=== PATIENT | male | born 1955 | race Caucasian/White ===

== ENCOUNTER 2018-02-26 04:40 | Emergency (ER) | payer OTHER ==
[2018-02-26] MEDS ORDERED: Lidocaine 1% 20 ML MDV INJECT ONE (05:12)
[2018-02-26] MEDS ORDERED: Bacitracin Oint 28.35 GM Tube TOP STA (05:32)
[2018-02-26] MEDS ORDERED: Bacitracin Oint 1 GM U/D Packet TOP ONE (05:36)
[2018-02-26] MEDS ORDERED: Bacitracin Oint 1 GM U/D Packet ONE (05:37)
--- NOTE | 2018-02-26 05:49 | EDM.PDOC ---
<Alycia Dia - Last Filed: 02/26/18 07:05> ED HPI GENERAL MEDICAL PROBLEM - General Chief Complaint: Upper Extremity Injury/Pain Stated Complaint: FELL DOWN THE STAIRS Time Seen by Provider: 02/26/18 05:43 Source of Information: Reports: Patient, EMS, Family History Limitations: Reports: No Limitations - History of Present Illness INITIAL COMMENTS - FREE TEXT/NARRATIVE: pt had been drinking tonight and he went down the stairs and lost his balance . He hit the rt side of his head and was not knocked out. He does have alot of swelling over the area. He is not on blood thinners. He also hit the rt shoulder and is having pain in the shoulder. Onset: Today, Sudden Duration: Hour(s): Location: Reports: Head, Upper Extremity, Right Associated Symptoms: Reports: No Other Symptoms, Other (pt is intoxicated. ) Right Shoulder Pain Score (Numeric/FACES): 9 head lac Pain Score (Numeric/FACES): 3 - Related Data Allergies Allergy/AdvReac Type Severity Reaction Status Date / Time No Known Allergies Allergy Verified 02/26/18 04:48 Home Meds: Home Meds Fexofenadine HCl [Ramonita Allergy] 60 mg PO DAILY 02/26/18 [History] Gluc 2KCl/Chondr/Jr Hy/Hy Ac [Glucosamine & Chondroitin Cap] 1 tab PO DAILY [History] Lisinopril/Hydrochlorothiazide [Lisinopril-Hctz 20-25 mg Tab] 1 each PO DAILY [History] Tamsulosin HCl [Flomax] 0.4 mg PO DAILY 02/26/18 [History] Past Medical History Cardiovascular History: Reports: Hypertension Genitourinary History: Reports: Prostate Disorder Musculoskeletal History: Reports: Arthritis, Fracture Social & Family History - Tobacco Use Smoking Status *Q: Never Smoker - Alcohol Use Days Per Week of Alcohol Use: 2 Number of Drinks Per Day: 10 Total Drinks Per Week: 20 - Recreational Drug Use Recreational Drug Use: No Review of Systems - Review of Systems Review Of Systems: See Below Constitutional: Reports: No Symptoms Eyes: Reports: Other (pupils equal and reactive. ) Ears: Reports: No Symptoms Nose: Reports: No Symptoms Mouth/Throat: Reports: No Symptoms Respiratory: Reports: No Symptoms Cardiovascular: Reports: No Symptoms GI/Abdominal: Reports: No Symptoms Genitourinary: Reports: No Symptoms Musculoskeletal: Reports: No Symptoms Skin: Reports: No Symptoms Neurological: Reports: No Symptoms ED EXAM, GENERAL - Physical Exam Exam: See Below Free Text/Narrative:: pt arrived able to give a good history. He had been drinking tonight and he fell down about 8 steps. He hit the rt side of his head . he was not knocked out. He has a large hematoma. He also hit his rt shoulder. Exam Limited By: No Limitations General Appearance: Alert, Mild Distress, Other (pt has been drinking. Pupils are equal and reactive. ) Ears: Normal TMs Nose: Normal Inspection Throat/Mouth: Normal Inspection Head: Atraumatic Neck: Normal Inspection Respiratory/Chest: No Respiratory Distress Cardiovascular: Regular Rate, Rhythm GI/Abdominal: Soft, Non-Tender (Male) Exam: Deferred Rectal (Males) Exam: Deferred Back Exam: Normal Inspection Extremities: Other ( pt has pain in the rt shoulder. ) Neurological: Alert, Oriented, Other (pt is intoxicated. ) Course - Vital Signs Last Recorded V/S: Last Vital Signs Temp 97.2 F 02/26/18 04:44 Pulse 86 02/26/18 04:55 Resp 18 02/26/18 04:55 BP 145/101 H 02/26/18 04:55 Pulse Ox 96 02/26/18 04:55 - Orders/Labs/Meds Orders: Active Orders 24 hr Category Date Time Status Clavicle Rt [CR] Stat Exams 02/26/18 05:11 Taken Head wo Cont [CT] Stat Exams 02/26/18 05:43 Taken Shoulder Comp Rt [CR] Stat Exams 02/26/18 04:45 Taken Shoulder wo Cont Rt [CT] Stat Exams 02/26/18 06:49 Taken Labs: Laboratory Tests 02/26/18 02/26/18 02/26/18 Range/Units 04:55 04:55 04:55 WBC 4.5 (4.5-11.0) K/uL RBC 5.03 (4.30-5.90) M/uL Hgb 15.6 H (12.0-15.0) g/dL Hct 46.3 (40.0-54.0) % MCV 92 (80-98) fL MCH 31 (27-31) pg MCHC 34 (32-36) % Plt Count 197 (150-400) K/uL Neut % (Auto) 56 (36-66) % Lymph % (Auto) 31 (24-44) % Irwin % (Auto) 10 H (2-6) % Eos % (Auto) 3 (2-4) % Baso % (Auto) 0 (0-1) % Sodium 146 (140-148) mmol/L Potassium 4.0 (3.6-5.2) mmol/L Chloride 109 H (100-108) mmol/L Carbon Dioxide 29 (21-32) mmol/L Anion Gap 12.0 (5.0-14.0) mmol/L BUN 13 (7-18) mg/dL Creatinine 1.0 (0.8-1.3) mg/dL Est Cr Clr Drug Dosing 91.33 mL/min Estimated GFR (MDRD) > 60 (>60) Glucose 126 H (74-106) mg/dL Calcium 8.7 (8.5-10.1) mg/dL Total Bilirubin 0.2 (0.2-1.0) mg/dL AST 26 (15-37) U/L ALT 36 (12-78) U/L Alkaline Phosphatase 76 (46-116) U/L Total Protein 7.2 (6.4-8.2) g/dL Albumin 3.6 (3.4-5.0) g/dL Globulin 3.6 H (2.3-3.5) g/dL Albumin/Globulin Ratio 1.0 L (1.2-2.2) Ethyl Alcohol 268 mg/dL Meds: Medications Discontinued Medications Generic Name Dose Route Start Last Admin Trade Name Dyan PRN Reason Stop Dose Admin Bacitracin 1 gm 02/26/18 09:00 Bacitracin Oint TOP TID JENNI Bacitracin 1 gm 02/26/18 05:32 02/26/18 05:46 Bacitracin Oint TOP 02/26/18 05:33 Not Given NOW STA Bacitracin 1 dose 02/26/18 05:36 02/26/18 05:46 Bacitracin Oint 1 Gm TOP 02/26/18 05:37 1 dose ONETIME ONE Administration Bacitracin Confirm 02/26/18 05:37 02/26/18 05:46 Bacitracin Oint 1 Gm Administered 02/26/18 05:38 Not Given Dose 1 dose .ROUTE .STK-MED ONE Ketorolac Tromethamine 60 mg 02/26/18 06:25 02/26/18 06:36 Toradol IM 02/26/18 06:26 60 mg ONETIME ONE Administration Lidocaine HCl 20 ml 02/26/18 05:12 02/26/18 05:32 Xylocaine 1% INJECT 02/26/18 05:13 20 ml ONETIME ONE Administration - Re-Assessments/Exams Free Text/Narrative Re-Assessment/Exam: 02/26/18 05:52 etoh is .268. He has normal labs otherwise. 02/26/18 06:51 pt had a neg cat scan of the head . His shoulder did not show a fracture. He has now developed alot of swelling over the scapula area. Will obtain a cat scan of the rt shoulder with particular interest in the rt scapula. 02/26/18 07:05 Pt had a laceration 7 inches in length. This is ragged in nature. the wound was cleaned well and infiltratesd with lidocaine. It was closed tightly with 3- 0 ethilon. A pressure dressing was applied. S Departure - Departure Disposition: Home, Self-Care 01 Clinical Impression: Head injury - Discharge Information Instructions: Wound Care, Adult Referrals: PCP,None [Primary Care Provider] - Forms: ED Department Discharge Care Plan Goals: suture removal in 8 days. Pt may leave pressure dressin on for 4-5 hours. He can then wash his hair. After that he needs to keep the wound dry. <Hira Mccann - Last Filed: 02/26/18 07:55> Course - Re-Assessments/Exams Free Text/Narrative Re-Assessment/Exam: 02/26/18 07:32 CT scan looked normal and this was relayed to the patient before discharge. Follow Dr. Dia's discharge recommendations. Departure - Departure Time of Disposition: 07:48
[2018-02-26] MEDS ORDERED: Ketorolac 60 MG/2 ML SDV IM ONE (06:25)
[2018-02-26] MEDS ORDERED: Bacitracin Oint 28.35 GM Tube TOP SCH (09:00)
== END 2018-02-26 07:48 | disposition home or self-care (01) ==
LOC: JP.ED 04:40
DX: S01.01XA Laceration without foreign body of scalp, initial encounter (principal); S49.91XA Unspecified injury of right shoulder and upper arm, initial encounter; I10 Essential (primary) hypertension; N42.9 Disorder of prostate, unspecified; W10.9XXA Fall (on) (from) unspecified stairs and steps, initial encounter; Z79.899 Other long term (current) drug therapy
CPT/HCPCS: 12005; 36415; 70450; 73000; 73030; 73200; 80053; 85025; 96372; 99284; G0480; J1885; A9270-GY

== ENCOUNTER 2024-10-20 19:07 | Emergency (ER) | payer MEDICARE, OTHER ==
[2024-10-20 19:36] LABS: BASOPHILS ABSOLUTE AUTO 0.03 K/uL (0.00-0.10); BASOPHILS PERCENT AUTO 0.5 % (0.1-1.3); EOSINOPHILS ABSOLUTE AUTO 0.08 K/uL (0.00-0.40); EOSINOPHILS PERCENT AUTO 1.3 % (0.0-5.4); IMMATURE GRAN ABSOLUTE AUTO 0.01 K/uL (0.00-0.23); IMMATURE GRAN PERCENT AUTO 0.2 % (0.0-0.7); LYMPHOCYTES ABSOLUTE AUTO 1.73 K/uL (0.8-3.3); LYMPHOCYTES PERCENT AUTO 27.7 % (11.4-47.7); MONOCYTES ABSOLUTE AUTO 0.51 K/uL (0.20-0.90); MONOCYTES PERCENT AUTO 8.2 % (3.3-12.6); NEUTROPHILS ABSOLUTE AUTO 3.89 K/uL (1.0-7.6); NEUTROPHILS PERCENT AUTO 62.1 % (40.0-78.1); PLATELET COUNT,PLT 121 K/uL (130-375); RED BLOOD CELL COUNT 4.63 M/uL (4.14-5.76); WHITE BLOOD CELL COUNT,WBC 6.3 K/uL (3.2-11.0)
[2024-10-20] MEDS: Diltiazem 25 MG/5 ML SDV IVPUSH ONE (19:42)
[2024-10-20 19:52] LABS: INR 1.3
[2024-10-20 19:59] LABS: A/G RATIO 1.0 (1.2-2.2); ALANINE AMINOTRANSFERASE,ALT 21 U/L (12-78); ASPARTATE AMNIOTRANSFERASE,AST 31 U/L (15-37); BILIRUBIN TOTAL 1.5 mg/dL (0.2-1.0); BLOOD UREA NITROGEN,BUN 15 mg/dL (7-18); CARBON DIOXIDE,CO2 25 mmol/L (21-32); CHLORIDE,CL 108 mmol/L (100-108); CREATININE 0.9 mg/dL (0.8-1.3); EST CRCL DRUG DOSING (CG) 92.60 mL/min; ESTIMATED GFR 94 mL/min (>60); GLUCOSE RANDOM 116 mg/dL (74-106); POTASSIUM,K 4.1 mmol/L (3.6-5.2); PROTEIN TOTAL,TP 7.3 g/dL (6.4-8.2); SODIUM,NA 140 mmol/L (140-148); TROPONIN I HIGH SENSITIVITY 17.8 pg/mL (<=60.3)
[2024-10-20] MEDS: Iopamidol 755 Mg/ML 100 ML Bottle IV SCH (21:47)
[2024-10-20] MEDS: Furosemide 40 MG/4 ML VIAL IVPUSH ONE (22:36)
[2024-10-20 23:22] LABS: APPEARANCE,URINE CLEAR (CLEAR); GLUCOSE,URINE NEGATIVE (NEGATIVE); OCCULT BLOOD,URINE TRACE-INTACT (NEGATIVE)
[2024-10-20] MEDS: Metoprolol Tartrate 5 MG/5 ML SDV IVPUSH ONE (23:29)
[2024-10-20 23:34] LABS: SQUAMOUS EPITHELIAL CELLS,UR RARE /HPF; UROTHELIAL CELLS,URINE NOT SEEN /HPF
[2024-10-21] MEDS ORDERED: Diltiazem 100 MG in Sodium Chloride 0.9% 100 ML IV SCH (00:30)
[2024-10-21] MEDS: LORazepam 2 MG/ML SDV IVPUSH ONE (05:02)
[2024-10-21] MEDS: Metoprolol Tartrate 5 MG/5 ML SDV IVPUSH ONE (07:11)
== END 2024-10-21 09:13 | disposition other institution (70) ==
LOC: JP.ED 19:07
DX: I11.0 Hypertensive heart disease with heart failure (principal); I50.9 Heart failure, unspecified; I48.91 Unspecified atrial fibrillation; Z91.09 Other allergy status, other than to drugs and biological substances; Z79.899 Other long term (current) drug therapy
CPT/HCPCS: 36415; 70450; 70496; 70498; 71045; 71275; 80053; 81001; 83880; 84484; 85025; 85379; 85610; 93005; 93010; 96361; 96374; 96375; 96376; 99285; J1163; J1938; J2060; J3490; J7030; Q9967